=== PATIENT | female | born 1965 | race Caucasian/White ===

== ENCOUNTER 2024-04-26 13:16 | Emergency (ER) | payer BC, SELFPAY ==
[2024-04-26 13:17] VITALS: BMI 37.1
[2024-04-26 13:53] VITALS: BP 147/84; PULSE 111; RESP 18; TEMP 36.5; O2SAT 95
--- NOTE | 2024-04-26 14:03 | XR_ITS ---
Examination: CT cervical spine without contrast 2-D sagittal reconstructions 2-D coronal reconstructions 3-D reconstructions. Exam date and time:April 26, 2024 1455 hours Comparison February 06, 2019 INDICATIONS: Chronic neck pain 11 years, history neck surgery, increasing neck pain the last one week CTDI:vol (mGy) 9.87 DLP: (mGycm) 230 Technique: Multiple 2 mm axial sections of the cervical spine have been obtained. The coronal and sagittal reconstructions have been obtained. 3-D reconstructions have been obtained. Low dose protocols were performed. One or more of the following dose reduction techniques were used; automated exposure control, adjustment of the mA and/or KV according to patient size, use of iterative reconstruction technique. Findings: Cervical fusion C4-C7 with satisfactory alignment There does not appear to be fusion at the C6-C7 level No acute fracture Intact odontoid C4-C5 mild right neural foraminal stenosis C6-C7 moderate to advanced bilateral neural foraminal stenosis IMPRESSION: Cervical fusion with satisfactory alignment C6-C7 moderate to advanced bilateral neural foraminal stenosis
--- NOTE | 2024-04-26 14:03 | XR_ITS ---
Examination: CT brain head without contrast. 2-D sagittal coronal reconstructions Date and time of exam:April 26, 2024 1444 hours Comparison March 14, 2007 Indications: Generalized head pain beginning 7 days ago CTDI: vol (mGy):50 DLP: (mGycm):1003 Technique: Multiple CT axial sections of the brain have been obtained, 5 mm slice thickness. Contrast has not been administered. 2-D sagittal, coronal reconstructions have been obtained Low dose protocols were performed. One or more of the following dose reduction techniques were used; automated exposure control, adjustment of the mA and/or KV according to patient size, use of iterative reconstruction technique. Findings: No significant ventricular enlargement. Intra-axial or extra-axial hemorrhage density is not seen. No mass effect or midline shift Basal cisterns are not remarkable. Fourth ventricle is midline. Cranial vault intact. Small polyp left maxillary antrum Impression: Negative for acute hemorrhage, mass effect or midline shift
[2024-04-26] MEDS: DiphenhydrAMINE 25 MG CAPSULE PO (14:17)
[2024-04-26] MEDS: METOCLOPRAMIDE 5 MG TABLET 10 MG PO (14:17)
[2024-04-26] MEDS: KETOROLAC INJ 60 MG/2 ML VIAL IM (14:19)
--- NOTE | 2024-04-26 15:45 | PD.EDHEAD ---
ED Head Injury RME/HPI General Chief complaint: Head Injury Stated complaint: OCONNELL x 7 days Time Seen by Provider: 04/26/24 13:39 Source: patient Arrival date/time: 04/26/24 13:16 This 68-year-old female presented to the emergency department with complaints of generalized headache for 1 week. History of migraines reports has been taking amitriptyline, was treated with Nurtec by her PCP reports that Nurtec did alleviate milder symptoms. However Nurtec was not covered by her insurance and was not able to continue taking medication. Endorses that her head starts in the frontal area and radiates to the posterior down to her neck. She is concerned because she has history of cervical neck fusion requesting imaging for further evaluation. Patient denies fever, chills rigors no diplopia or syncopal episodes. Mode of arrival: ambulatory Related Data Home Medications ?Medication ?Instructions ?Recorded ?Confirmed aspirin 81 mg chewable tablet 81 mg PO QDAY ##0 03/22/17 02/06/19 fenofibrate 160 mg tablet 160 mg PO QDAY ##30 03/22/17 02/06/19 hydrochlorothiazide 50 mg tablet 25 mg PO QAM #0 tabs 03/22/17 02/06/19 irbesartan 150 mg tablet 150 mg PO QDAY ##90 03/22/17 02/06/19 omeprazole 40 mg capsule,delayed 40 mg PO QDAY ##90 03/22/17 02/06/19 release simvastatin 10 mg tablet 10 mg PO HS ##90 03/22/17 02/06/19 amitriptyline 50 mg tablet 50 mg PO HS 02/06/19 02/06/19 cetirizine 10 mg capsule (Zyrtec) 10 mg PO QDAY 02/06/19 02/06/19 Allergies Allergy/AdvReac Type Severity Reaction Status Date / Time baclofen Allergy Severe ANAPHYLAXIS Verified 08/31/22 07:17 nitrous oxide Allergy Severe Anaphylaxis Verified 08/31/22 07:17 lanolin Allergy Mild Hives Verified 08/31/22 07:17 Review of Systems Review of Systems Systems Reviewed: All systems reviewed, normal except as documented Narrative Review of Systems: Gen: No fever, no chills, no weight loss EYES: No discharge, no visual changes, no pain HEENT: No ear pain, no congestion, no sore throat PULM: No shortness of breath, no cough, no congestion CV: No chest pain, no dyspnea on exertion, no palpitations GI: No nausea, no vomiting, no diarrhea, no pain, no constipation : No frequency, no urgency,? no dysuria Musc/skel: No joint pain, no back pain Skin: No rash? Psyc: No hallucinations, no depression Heme/Lymph: No easy bleeding or bruising tendencies Neuro: No weakness, no headache ED Exam Narrative Physical exam: General: Sittiing in Exam table in no acute distress, answering questions appropriately HENT: normocephalic, atraumatic, EOMI, PERRLA, moist mucous membranes Chest: chest wall is nontender Cardiac: regular rate and rhythm, normal S1 and S2, no murmurs, rubs, or gallops, capillary refill ?2 seconds Pulmonary: clear to auscultation bilaterally, no wheezing, crackles, or rhonchi Abdominal: active bowel sounds, soft, nontender, nondistended Neuro: A&OX3, CN II-XII intact, sensation grossly intact bilaterally in UE and LE. Skin: no rashes, no ecchymosis Ext: no lower extremity edema Course Quality Measures none Orders Category Date Time Status CT cervical spine wo con Stat Exams 04/26/24 14:[address] head/brain wo con Stat Exams 04/26/24 14:03 Completed DiphenhydrAMINE [Benadryl] Med 04/26/24 14:05 Discontinued 25 mg PO X1 ONE Ketorolac Inj [Toradol Inj] Med 04/26/24 14:03 Discontinued 60 mg IM X1 ONE Metoclopramide [Reglan] Med 04/26/24 14:03 Discontinued 10 mg PO X1 ONE Vital Signs Vital signs: Vital Signs Temperature 97.7 F 04/26/24 13:53 Pulse Rate 111 H 04/26/24 13:53 Respiratory Rate 18 04/26/24 13:53 Blood Pressure 147/84 H 04/26/24 13:53 Pulse Oximetry (%) 95 04/26/24 13:53 Oxygen Delivery Method Room Air 04/26/24 13:53 Head Injury MDM Narrative MDM Narrative:: Patient evaluated for ongoing headache for 7 days. Upon arrival patient is awake and alert conversive. No fever or meningeal signs. Medication cocktail was given relieving her pain of headache. Patient did have CT head and cervical spine Cervical spine demonstrated mild stenosis, stable screws and hardware. CT brain was negative for any acute abnormality, positive for maxillary retention cyst. Patient's imaging results reviewed the patient. Advised to continue following up with her PCP on Monday. Reassurance provided Advised maxillary retention cyst can be followed up by ENT. ER precautions given. Patient data External records reviewed:: [facility] previous records Clinical information provided by:: patient Social determinants that could affect healthcare access:: none Patient has the following chronic illnesses:: none How is presenting disease/condition affected by chronic disease/condition?: no chronic disease Evaluation data The following diagnostics were reviewed and interpreted by me:: radiology exam(s) Lab and/or radiology exams considered but not ordered:: none Interpretation Summary: Examination: CT cervical spine without contrast 2-D sagittal reconstructions 2-D coronal reconstructions 3-D reconstructions. Exam date and time:April 26, 2024 1455 hours Comparison February 06, 2019 INDICATIONS: Chronic neck pain 11 years, history neck surgery, increasing neck pain the last one week CTDI:vol (mGy) 9.87 DLP: (mGycm) 230 Technique: Multiple 2 mm axial sections of the cervical spine have been obtained. The coronal and sagittal reconstructions have been obtained. 3-D reconstructions have been obtained. Low dose protocols were performed. One or more of the following dose reduction techniques were used; automated exposure control, adjustment of the mA and/or KV according to patient size, use of iterative reconstruction technique. Findings: Cervical fusion C4-C7 with satisfactory alignment There does not appear to be fusion at the C6-C7 level No acute fracture Intact odontoid C4-C5 mild right neural foraminal stenosis C6-C7 moderate to advanced bilateral neural foraminal stenosis IMPRESSION: Cervical fusion with satisfactory alignment C6-C7 moderate to advanced bilateral neural foraminal stenosis Medications / Prescriptions Medications or Prescriptions considered but not ordered:: none Medication administrations:: Medication Administration History Discontinued Medications Diphenhydramine HCl (Diphenhydramine 25 Mg Capsule) 25 mg PO X1 ONE Stop: 04/26/24 14:06 Last Admin: 04/26/24 14:17 Dose: 25 mg Documented By: Ketorolac Tromethamine (Ketorolac Inj 60 Mg/2 Ml Vial) 60 mg IM X1 ONE Stop: 04/26/24 14:04 Last Admin: 04/26/24 14:19 Dose: 60 mg Documented By: Metoclopramide HCl (Metoclopramide 5 Mg Tablet) 10 mg PO X1 ONE Stop: 04/26/24 14:04 Last Admin: 04/26/24 14:17 Dose: 10 mg Documented By: All medications administered and effective Consultations Consultation(s) initiated? (list below): No Diagnosis Differential diagnosis head injury: closed head injury, subarachnoid hematoma and other (migraines, sinusitis) Most likely diagnosis given after review of the tests above:: Maxillary sinus cyst Admission Indicated Admission indicated?: not indicated Admission Request Was there a request for admission?: No Disposition Plan Disposition Plan: Discharge Discharge Attestation Discharge Attestation: The patient and all family members were given an opportunity to ask questions and understood the discharge instructions. Discharge instructions specifically effects, indications for sooner follow up or return to the emergency department, and the expected course of current diagnosis. Patient condition: Stable Discharge Plan Plan Patient Disposition: HOME (Self Care) Patient condition on transfer: Stable Prescriptions/Referrals Prescriptions/Med Rec: No Action hydrochlorothiazide 50 MG tablet 25 mg PO QAM Qty: 0 simvastatin 10 MG tablet 10 mg PO HS Qty: 90 omeprazole 40 MG capsule,delayed release(DR/EC) 40 mg PO QDAY Qty: 90 aspirin 81 MG tablet,chewable 81 mg PO QDAY Qty: 0 irbesartan 150 MG tablet 150 mg PO QDAY Qty: 90 fenofibrate 160 MG tablet 160 mg PO QDAY Qty: 30 amitriptyline 50 mg Tablet 50 mg PO HS Zyrtec 10 mg Capsule 10 mg PO QDAY Referrals: Chiquita Masters MD [Primary Care Provider] - In 1 week Problem List Clinical Impression: Maxillary sinus cyst Patient/Caregiver Discharge Instructions Discharge Activity: activity as tolerated Education Materials: Sinus Problems Dx Tests Additional Instructions: Your CT demonstrates a maxillary sinus cyst which can be causing your headaches. -Occasions are helpful with the symptoms are nasal decongestants, allergy medication. -Your provider might want to do a ENT referral. -Continue follow-up with your PCP. Return to the emergency department with any worsening symptoms change in condition. Print Language: Citizen Of [place] Stand Alone Forms: Steffi Award Info., Patient Portal Info Letter AMARIS/DESEAN Supervising Physician AMARIS/DESEAN Supervising Physician: Dr Hare
== END 2024-04-26 17:51 | disposition home or self-care (01) ==
PROVIDERS: Emergency Provider Emergency Medicine; PCP Internal Medicine
DX: J34.1 Cyst and mucocele of nose and nasal sinus (principal); M54.2 Cervicalgia
CPT/HCPCS: 70450; 72125; 96372; 99284; J1885; A9270

== ENCOUNTER → 2024-06-21 | Outpatient (CLI) | payer BC, SELFPAY ==
[2024-06-21 10:19] LABS: Basophils % (Auto) 1 % (0-2.5); Eosinophils # (Auto) 0.1 Thou/mm3 (0.0-0.5); Eosinophils % (Auto) 2 % (0-10); Hematocrit 42.6 % (36.0-46.0); Hemoglobin 14.7 g/dL (12.0-16.0); Immature Granulocytes % (Auto) 0 % (0-0); Immature Granulocytes Auto 0.01 Thou/mm3 (0.00-0.00); Lymphocytes # (Auto) 1.6 Thou/mm3 (1.0-4.8); Lymphocytes % (Auto) 29 % (10-50); Mean Corpuscular HGB Conc 34.5 g/dl (31.0-37.0); Mean Corpuscular Hemoglobin 29.6 pg (25.0-35.0); Mean Corpuscular Volume 86 fL (80-100); Monocytes # (Auto) 0.6 Thou/mm3 (0.0-0.8); Monocytes % (Auto) 10 % (0-12); Neutrophils # (Auto) 3.3 Thou/mm3 (1.8-7.7); Neutrophils % (Auto) 58 % (37-80); Nucleated Red Blood Cell % 0 /100 WBC (0); Platelet Count 210 Thou/mm3 (140-440); RDW Standard Deviation 40.6 fL (36.4-46.3); Red Blood Count 4.96 Miln/mm3 (4.00-5.20); White Blood Count 5.7 Thou/mm3 (3.6-11.0)
[2024-06-21 10:37] LABS: Glucose Estimated Average 120 mg/dL (80-131); Hemoglobin A1C 5.8 % Hgb (4.8-6.0)
[2024-06-21 10:41] LABS: Vitamin B12 673 pg/mL (211-911); Vitamin D 25 Hydroxy Total 48.6 ng/mL (7.3-40.2)
[2024-06-21 10:44] LABS: Alanine Aminotransferase 40 U/L (10-49); Albumin, Serum 4.5 gm/dL (3.5-5.0); Albumin/Globulin Ratio 1.5 (1.2-2.2); Alkaline Phosphatase 53 U/L (46-116); Anion Gap 8 (7-16); Aspartate Amino Transferase 28 U/L (0-34); BUN/Creatinine Ratio 16 Ratio (12-20); Bilirubin,Total 0.6 mg/dL (0.3-1.2); Blood Urea Nitrogen 11 mg/dL (9-23); Calcium 9.6 mg/dL (8.3-10.6); Calcium (Corrected) 9.6 mg/dL (8.5-10.1); Carbon Dioxide 30.9 mMol/L (20.0-31.0); Cardiac Risk Estimate 4.4 RATIO (3.7-5.6); Chloride 100 mMol/L (98-107); Cholesterol 179 mg/dL (132-200); Creatinine (Component) 0.7 mg/dL (0.6-1.3); Glucose 126 mg/dL (74-106); HDL Cholesterol 41 mg/dL (40-60); LDL Cholesterol,Calculated 109 mg/dL (0-130); Osmolality,Calculated 278 (275-295); Potassium 3.9 mMol/L (3.4-5.1); Sodium 139 mMol/L (136-145); Total Protein 7.5 gm/dL (5.7-8.2); Triglycerides 146 mg/dL (30-150); Uric Acid 4.8 mg/dL (3.1-7.8); eGFR > 60 See Note
[2024-06-21 10:59] LABS: Collection Type, Urine Clean Catch
[2024-06-21 11:28] LABS: Bacteria,Urine Rare; Bilirubin,Urine Negative (Negative); Blood,Urine Trace (Negative); Color,Urine Yellow (Lt Yel-Yel); Glucose, Urine Negative (Negative); Ketones,Urine Negative (Negative); Leukocyte Esterase,Urine Positive (Negative); Nitrite,Urine Negative (Negative); PH,Urine 7.5 (5.0-7.0); Protein,Urine Trace (Neg - Trace); RBC,Urine 7 /hpf (0-3); Specific Gravity,Urine 1.022 (1.001-1.035); Squamous Epithelial Cell,Urine 10 /hpf (0-5); Urobilinogen,Urine Negative mg/dL (0.0-1.0); WBC,Urine 16 /hpf (0-5)
[2024-06-21 11:44] LABS: Clarity,Urine Hazy (Clear/Hazy)
[2024-06-21 11:52] LABS: Creatinine MALB Rnd Ur 128 mg/dL (30-125); Microalbumin Creat Ratio 14 mg/gCrea (<30); Microalbumin, Random Urine 18 mg/L (0-300)
== END | disposition home or self-care (01) ==
LOC: COPL 09:26
PROVIDERS: PCP Internal Medicine; Referring Provider Internal Medicine; Visit Provider Internal Medicine
DX: E11.9 Type 2 diabetes mellitus without complications (principal); I10 Essential (primary) hypertension; E78.5 Hyperlipidemia, unspecified
CPT/HCPCS: 36415; 80053; 80061; 81001; 82043; 82306; 82570; 82607; 83036; 84443; 84550; 85025